=== PATIENT | male | born 1955 | race Caucasian/White ===

== ENCOUNTER 2021-09-05 01:36 | Day surgery (SDC) | payer BC, SELFPAY ==
[2021-09-05 08:19] VITALS: BMI 31.4
[2021-09-05 09:26] VITALS: BP 122/75; PULSE 73; RESP 18; TEMP 35.8; O2SAT 100
--- NOTE | 2021-09-05 09:26 | WPDGICN ---
Assessment and Plan Assessment and plan (1) Encounter for screening colonoscopy: Code(s): Z12.11 - Encounter for screening for malignant neoplasm of colon Status: Acute Assessment and Plan: Patient presents for screening colonoscopy. Patient appears to be at average risk for colon polyps. Further recommendations will be given after endoscopy. GI Consult Note Consult date/time: 09/05/21 09:26 HPI: Alfie Weiss is a 66 year old male Presents for screening colonoscopy. Patient's current weight appetite and bowel movements are normal. Patient denies abdominal pain. He has had no bleeding. Family history is noncontributory. Patient reports colonoscopy more than 10 years ago that was unremarkable . he presents today for neoplasia screening. Review of Systems Review of Systems: All systems reviewed & are unremarkable except as noted in HPI and below PMFSH Social History Social History Smoking packs per day: 1 Smoking cigarettes per day: 20.0 Years smoked: 10 Smoking pack-years: 10.00 Smoking status: Former smoker Alcohol intake: current Substance use: never Substance use type: does not use Living arrangements: with family Spiritual care concerns: No Meds Home Medications and Allergies Home Medications Medication Instructions Recorded Confirmed Type lorazepam 1 mg PO BID PRN 09/05/21 09/05/21 History paroxetine HCl 40 mg PO DAILY 09/05/21 09/05/21 History simvastatin 40 mg PO DAILY 09/05/21 09/05/21 History Allergies Allergy/AdvReac Type Severity Reaction Status Date / Time No Known Allergies Allergy Unknown Unverified 09/05/21 09:24 Exam Narrative: Physical exam reveals patient to be alert. Vital signs stable. HEENT exam is unremarkable. Patient is anicteric. Lungs are clear to auscultation and percussion. Heart is without murmur or extra sounds. Abdominal exam bowel sounds are present soft nontender with no hepatosplenomegaly. Digital external rectal exam is normal.
[2021-09-05] MEDS: LACTATED RINGERS 1,000 ML 150 ML IV CONT (09:30)
--- NOTE | 2021-09-05 09:48 | WPDANESEPPF ---
Anes - Initial Pre Proc Eval Procedure: Operation Date: 09/05/21 10:45 Proposed Procedures p Screening Colonoscopy - Jeol Wilkinson MD Date/Time: 09/05/21 09:48 Surgeon: Joel Wilkinson MD Pre Op Diagnosis: neoplasm screening Patient Data Age: 66 Gender: M Height: 1.8 m Weight: 100 kg Last Vital Signs Temp 35.8 C L 09/05/21 09:26 Pulse 73 09/05/21 09:26 Resp 18 09/05/21 09:26 BP 122/75 09/05/21 09:26 Pulse Ox 100 09/05/21 09:26 Allergies Allergy/AdvReac Type Severity Reaction Status Date / Time No Known Allergies Allergy Unknown Unverified 09/05/21 09:24 Home Medications Medication Instructions Recorded Confirmed Type lorazepam 1 mg PO BID PRN 09/05/21 09/05/21 History paroxetine HCl 40 mg PO DAILY 09/05/21 09/05/21 History simvastatin 40 mg PO DAILY 09/05/21 09/05/21 History Patient hx anesthesia problems: none Family hx anesthesia problems: none Results Review: All pre-operative results and documents have been reviewed as part of the pre-operative evaluation. PMFSH Past Medical History Medical History (Updated 09/05/21 @ 09:48 by Alfie Flores MD) Hyperlipidemia Surgical History Surgical History (Updated 09/05/21 @ 09:48 by Alfie Flores MD) H/O colonoscopy Social History Social History Smoking packs per day: 1 Smoking cigarettes per day: 20.0 Years smoked: 10 Smoking pack-years: 10.00 Smoking status: Former smoker Alcohol intake: current Substance use: never Substance use type: does not use Living arrangements: with family Spiritual care concerns: No Anes - Eval Final PreProcedure Day of Procedure 09/05/21 09:48 Patient weight: obese Heart: regular rate and rhythm Lungs: clear to auscultation Airway: Mallampati scale class II Neurological: alert and oriented Last oral intake: >/= 8 hours ASA classification: II Emergent: no Anesthetic plan: proceed Anesthesia type and monitoring: general GIVS and standard monitoring Results Review: All pre-operative results and documents have been reviewed as part of the pre-operative evaluation. Informed Consent: The patient's anesthetic plan and its attendant risks and benefits were discussed with the patient/family/POA. Questions were solicited and answers provided to the satisfaction of the patient/family/POA.
[2021-09-05 10:16] VITALS: BP 99/59; PULSE 88; RESP 14; O2SAT 100
[2021-09-05 10:26] VITALS: BP 107/64; PULSE 68; RESP 13; O2SAT 100
[2021-09-05 10:36] VITALS: BP 125/56; PULSE 74; RESP 20; O2SAT 100
== END 2021-09-05 10:48 | disposition home or self-care (01) ==
PROVIDERS: PCP Family Medicine; Visit Provider Internal Medicine Gastroenterology
PROC: 0DJD8ZZ Inspection of Lower Intestinal Tract, Via Natural or Artificial Opening Endoscopic (ICD-10-PCS; CPT 45378; principal; 2021-09-05 10:45)
DX: Z12.11 Encounter for screening for malignant neoplasm of colon (principal); K64.8 Other hemorrhoids; E78.5 Hyperlipidemia, unspecified; Z87.891 Personal history of nicotine dependence; E66.9 Obesity, unspecified; Z68.30 Body mass index [BMI] 30.0-30.9, adult
CPT/HCPCS: 45378; J2704; J7120

== ENCOUNTER 2022-12-02 12:26 | Inpatient (IN) | payer MEDICARE, SELFPAY ==
[2022-12-02] VITALS (15 sets, daily range): BP systolic 111–158; BP diastolic 49–70; PULSE 66–92; RESP 12–18; TEMP 36.5–37.3; O2SAT 97–100; BMI 30.9
--- NOTE | ~2022-12-02 | XR_ITS ---
XR chest 1V portable DATE: 12/02/2022 13:09 INDICATION: Shortness of breath TECHNIQUE: Portable upright AP chest on 11/28/2022 at 1307 hours COMPARISON: None FINDINGS: No pulmonary infiltrate or consolidation, pleural effusion or pulmonary vascular congestion or pneumothorax is detected. No hilar or mediastinal enlargement. Heart size is borderline, not optimally evaluated on AP projection because of magnification. Degenerative spurring of the thoracic spine. IMPRESSION: No active pulmonary disease Reviewed, dictated and finalized at location A. IMPRESSION: No active pulmonary disease
--- NOTE | 2022-12-02 12:51 | ECG_ITS ---
Measurements Intervals [place] Rate: 80 P: -35 IN: 122 QRS: -18 QRSD: 132 T: 2 QT: 425 QTc: 492 Interpretive Statements SINUS RHYTHM INTRAVENTRICULAR CONDUCTION DELAY [130+ ms QRS DURATION] VOLTAGE CRITERIA FOR LVH [MEETS CRITERIA IN ONE OF: R(aVL), S(V1), R(V5), R(V5/V6)+S(V1)] ABNORMAL ECG NO PREVIOUS ECG AVAILABLE FOR COMPARISON Electronically Signed On 12-03-2022 8:23:41 CDT by Andres Brady M.D.
--- NOTE | 2022-12-02 13:07 | ED.GENADULT ---
HPI - General Adult General Chief complaint: Recheck/Abnormal Lab/Rx Stated complaint: blood transfusion Time Seen by Provider: 12/02/22 12:36 History of Present Illness HPI narrative: this is a 67-year-old male who is sent in by his primary care physician for a low hemoglobin of 4.8. Patient states that he has been short of breath for about 5 years. He says that he went saw his primary care physician about it they ordered some lab work. While he was in [place] called him back instructed him to come back to states he would need a blood transfusion. At this time patient feels globally weak and says he looks pale but has no fever chills chest pain difficulty breathing abdominal pain. He has not noticed any hematochezia or melena. He had a colonoscopy 1 year ago which he states was normal. Related Data Home Medications Medication Instructions Recorded Confirmed lorazepam 1 mg tablet 1 mg PO BID PRN Anxiety 09/05/21 09/05/21 simvastatin 40 mg tablet 40 mg PO DAILY 09/05/21 09/05/21 Allergies Allergy/AdvReac Type Severity Reaction Status Date / Time No Known Allergies Allergy Unknown Unverified 12/02/22 12:36 [facility] Past Medical History Medical History Essential (primary) hypertension Hyperlipidemia Major depressive disorder, recurrent, in partial remission Obesity Other abnormal glucose Surgical History Surgical History (Updated 09/19/22 @ 13:07 by TOMER Bates) H/O colonoscopy History of carpal tunnel release 2003 History of vasectomy 1994 Social History Social History Smoking packs per day: 1 Smoking cigarettes per day: 20.0 Years smoked: 10 Smoking pack-years: 10.00 Smoking status: Former smoker Alcohol intake: current Substance use: never Substance use type: does not use Lack of Transportation: No Lack of Food: Never True Current Housing: I Have Housing Concerned About Future Housing: No Difficulty Paying Gas/Electric Bills: No Difficulty Paying for Meds: No Currently Unemployed: YES Education: Master's Degree or Higher Difficulty w/ Childcare or Family Care: No Living arrangements: with family Occupation/Education: retired Gender identity (if verbalized by the patient): Male Spiritual care concerns: No Exam Narrative: APPEARANCE: No apparent distress. Head: atraumatic. EYES: EOMI, NOSE: Atraumatic NECK: Trachea midline RESPIRATORY: No increased rate of breathing , clear to auscultation CARDIOVASCULAR: RRR, ABDOMINAL: Non-distended, soft nontender no guarding or rebound MUSCULOSKELETAl: No obvious deformities NEURO: Alert. Moving 4/4 extremities SKIN:: Warm, dry. Normal color PSYCHIATRIC: Normal affect rectal exam was Hemoccult negative Course Vital Signs Vital signs: Vital Signs Temperature 97.7 F 12/02/22 12:31 Pulse Rate 92 12/02/22 12:31 Respiratory Rate 18 12/02/22 12:31 Blood Pressure 137/66 12/02/22 12:31 Pulse Oximetry 99 12/02/22 12:31 Oxygen Delivery Room Air 12/02/22 12:31 Temperature 97.7 F 12/02/22 12:31 Pulse Rate 84 12/02/22 14:03 Respiratory Rate 16 12/02/22 14:03 Blood Pressure 120/68 12/02/22 14:03 Pulse Oximetry 100 12/02/22 14:03 Oxygen Delivery Room Air 12/02/22 12:31 Medical Decision Making [facility] Narrative Medical decision making narrative: -Presentation: 67-year-old male presenting to ED for abnormal labs. Hemoglobin 4.8. Patient has symptomatic anemia but no focal findings. Anemia lab work was ordered. 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 Nancy Nixon on October 20. -Hx from [facility] So
[2022-12-02 13:13] LABS: Reticulocyte Hemoglobin Conten 13.9 pg (28.2-35.7); Reticulocyte Percent 2.98 % (0.7-4.3); Reticulocytes Absolute 0.09 M/mm3 (0.02-0.1)
[2022-12-02 13:18] LABS: Lactate Dehydrogenase 130 U/L (120-246)
[2022-12-02 13:20] LABS: Alanine Aminotransferase 18 U/L (6-50); Albumin Level 4.5 g/dL (3.5-5.1); Alkaline Phosphatase 67 U/L (38-126); Anion Gap 9 mmol/L (8-16); Aspartate Amino Transferase 24 U/L (17-59); Bilirubin,Total 0.4 mg/dL (0.2-1.3); Blood Urea Nitrogen 10 mg/dL (9-20); Calcium 8.6 mg/dL (8.4-10.2); Carbon Dioxide 25 mmol/L (22-30); Chloride 104 mmol/L (98-107); Estimated CRCL calculation 113 ml/min; Estimated Glomerular Filt Rate > 60; Glucose 89 mg/dL (65-110); Lipase 40 U/L (23-300); Phosphorus 4.1 mg/dL (2.5-4.5); Potassium 3.8 mmol/L (3.4-5.0); Sodium 138 mmol/L (137-145)
[2022-12-02 13:22] LABS: Bilirubin,Total 0.5 mg/dL (0.2-1.3)
[2022-12-02 13:26] LABS: Transferrin 370 mg/dL (206-381)
[2022-12-02 13:27] LABS: Partial Thromboplastin Time 29.6 SECONDS (22.3-36.8); Prothrombin Time 14.1 Seconds (11.1-14.7)
[2022-12-02 13:31] LABS: Troponin I < 0.012 ng/mL (0.000-0.034)
[2022-12-02 13:38] LABS: Appearance Urine Clear (Clear); Bilirubin Urine Negative (Negative); Blood Urine Negative (Negative); Color Urine Yellow (Yellow); Glucose Urine UA Negative (Negative); Ketones Urine Negative (Negative); Leukocyte Esterase Ur Negative LEU/UL (Negative); Nitrate Urine Negative (Negative); Protein Urine Negative (Negative); Specific Grav Ur 1.007 (1.001-1.035); Urobilinogen Urine 0.2 mg/dL (<2.0); pH Urine 5.5 (5.0-9.0)
[2022-12-02 13:41] LABS: Add Urine Microscopic? NO
[2022-12-02 13:45] LABS: Iron 23 ug/dL (49-181)
[2022-12-02 13:54] LABS: Percent Iron Saturation 4 % (20-50)
[2022-12-02 14:17] LABS: Thyroid Stimulating Hormone Reflex 0.568 uIU/mL (0.465-4.68)
[2022-12-02 14:21] LABS: Ferritin 2.68 ng/mL (11.1-264)
[2022-12-02 14:26] LABS: Folic Acid 19.3 ng/mL (2.76->20)
[2022-12-02 14:34] LABS: Lactic Acid Reflex 0.9 mmol/L (0.7-2.0)
[2022-12-02 16:00] LABS: Basophils Percent Auto 0.7 % (0.2-1.2); Eosinophils Absolute Auto 0.2 K/mm3 (0-0.3); Eosinophils Percent Auto 3.5 % (0-4.4); Immature Granulocyte Absolute 0.03 K/mm3 (0.00-0.031); Immature Granulocyte Percent A 0.6 % (0-0.5); Immature Platelet Fraction Pct 14.1 % (0.9-11.2); Lymphocytes Absolute Auto 0.83 K/mm3 (0.9-3.2); Lymphocytes Percent Auto 15.2 % (18.3-44.2); Mean Corpuscular Hemoglobin 15.2 pg (26-34); Mean Corpuscular Volume 63.2 fl (80-100); Monocytes Absolute Auto 0.3 K/mm3 (0.1-0.6); Monocytes Percent Auto 5.7 % (2.6-8.5); Neutrophils Absolute Auto 4.1 K/mm3 (1.3-6.7); Neutrophils Percent Auto 74.3 % (45.5-73.1); Nucleated Red Blood Cells Perc 0.6 % (0.0-0.2); Platelet Count Result 235 k/mm3 (150-375); Red Cell Distribution Width 22.6 % (11.5-14.5); White Blood Count 5.5 K/mm3 (4.5-10.0)
[2022-12-02 16:15] LABS: Hematocrit 19.6 % (42.0-52.0); Hemoglobin 4.7 g/dL (14.0-18.0)
[2022-12-02 16:16] LABS: Anisocytosis 1+ (NORMAL); Hypochromasia 1+ (NORMAL); Microcytosis 2+ (NORMAL); Ovalocytes 1+ (NORMAL); Platelet Estimate Adequate (Adequate); Schistocytes None Seen (NORMAL)
[2022-12-02 16:26] LABS: Troponin I < 0.012 ng/mL (0.000-0.034)
--- NOTE | 2022-12-02 17:12 | ADMGEN ---
This patient, Alfie Weiss, was admitted to [facility] Surg Room 312-01 at 1710. Patient/family oriented to hospital policies and general routines including ID bracelet, bed and alarms, visiting hours, pain management, procedures, bathroom and other care routines, personal items, smoking policy, room service/diet, and visiting hours. Information on how to activate the Rapid Response Team has been discussed. Patient/Family are encouraged to report perceived risks to care and to ask questions if they do not understand what they are told or what they should do.
[2022-12-02] MEDS: TUBING, BLOOD PLUM PUMP TUBING 1 EACH XX (17:47)
[2022-12-02] MEDS: SODIUM CHLORIDE 0.9% IV 250 ML 30 ML IV CONT (17:47)
--- NOTE | 2022-12-02 20:12 | PM.IMHP ---
H&P: HPI History of Present Illness Date/Time: 12/02/22 20:12 Chief Complaint: Abnormal lab Narrative: This is a 67-year-old male patient who has a history of depression anxiety and hyperlipidemia. The patient had been in [place] when he got a phone call from his primary care doctor that his blood count was low and that he needed a blood transfusion. The patient stated that he has been feeling short of breath and weak for at least the last 5 years. The patient stated that he has been short of breath with activity but it has been worse over the last several days. He has had no fever chills. The patient also feels dizzy a time. The patient did have a colonoscopy approximately 1 year ago and it was reported as normal and the patient was to return in 10 years. The patient has no complaints of any blood in his stool. The patient did return to [place] from his trip to [place]. On 11/21 his hemoglobin was 4.8 and he was notified during his trip that his blood count was low. Today his H&H was 4.7 and 19.6. Red blood cells 3.10 MCV is 63.2. He has microcytic anemia. His iron is low at 23 TIBC is 563 iron saturation is 4. Ferritin 2.68. The patient stated that he has never had a iron infusion before. His TSH is within normal limits. The patient had anemia panel drawn prior to his blood transfusion and many of those are still pending. Patient was type and crossmatch for 3 units of packed red blood cells ordered. The patient stated that he is feeling better with the blood transfusion he said he has not felt this well in a long time. He did have a chest x-ray that shows no active pulmonary disease. The patient has been admitted to observation status on the date of service of 12/02/2022. Review of Systems Review of Systems: All systems reviewed & are unremarkable except as noted in HPI and below Constitutional: Constitutional: Reports as per HPI and Reports no additional constitutional complaints Eyes: Eyes: Reports as per HPI and Reports no additional eye complaints ENT: Reports system reviewed and no additional complaints, except as documented and Reports Normal hearing present Cardiovascular: Cardiovascular: Reports no additional cardiovascular complaints Respiratory: Respiratory: Reports no additional respiratory complaints and Reports no additional respiratory complaints Gastrointestinal: Gastrointestinal: Reports as per HPI and Reports no additional gastrointestinal complaints Musculoskeletal: Musculoskeletal: Reports no additional musculoskeletal complaints Integumentary/Breasts: Skin/Breast: Reports system reviewed and no additional complaints, except as docu and Reports as per HPI Neurologic: Reports system reviewed and no additional complaints, except as documented, Reports as per HPI and Reports Normal hearing present Psychiatric: Psychiatric: Reports no additional psychiatric complaints and Reports as per HPI Endocrine: Endocrine: Reports no additional endocrine complaints Hematologic/Lymphatic: Hematologic/Lymphatic: Reports no additional hematologic/lymphatic complaints Allergic/Immunologic: Allergic/Immunologic: Reports no additional allergic/immunologic complaints PMFSH Past Medical History Medical History (Updated 12/02/22 @ 23:08 by Rachael Baptiste NP) Anxiety with depression Essential (primary) hypertension Hyperlipidemia Major depressive disorder, recurrent, in partial remission Obesity Other abnormal glucose Surgical History Surgical History H/O colonoscopy History of carpal tunnel release 2004 History of vasectomy 1994 Family History Family History (Updated 12/02/22 @ 23:08 by Rachael Baptiste NP) Other Hypertension Social History Social History (Updated 12/02/22 @ 23:10 by Rachael Baptiste NP) Social History: 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 He has no children. He is . His is the
[2022-12-02] MEDS: LORazepam (*CRX) 1 MG TABLET PO (23:33)
[2022-12-03] VITALS (7 sets, daily range): BP systolic 119–137; BP diastolic 56–69; PULSE 67–85; RESP 12–20; TEMP 36.6–37.3; O2SAT 96–99
[2022-12-03 03:32] LABS: Basophils Percent Auto 0.7 % (0.2-1.2); Eosinophils Absolute Auto 0.2 K/mm3 (0-0.3); Eosinophils Percent Auto 3.3 % (0-4.4); Hematocrit 27.7 % (42.0-52.0); Hemoglobin 7.2 g/dL (14.0-18.0); Immature Granulocyte Absolute 0.05 K/mm3 (0.00-0.031); Immature Granulocyte Percent A 0.9 % (0-0.5); Immature Platelet Fraction Pct 15.7 % (0.9-11.2); Lymphocytes Absolute Auto 0.85 K/mm3 (0.9-3.2); Lymphocytes Percent Auto 14.6 % (18.3-44.2); Mean Corpuscular Hemoglobin 18.8 pg (26-34); Mean Corpuscular Volume 72.5 fl (80-100); Monocytes Absolute Auto 0.3 K/mm3 (0.1-0.6); Monocytes Percent Auto 5.3 % (2.6-8.5); Neutrophils Absolute Auto 4.4 K/mm3 (1.3-6.7); Neutrophils Percent Auto 75.2 % (45.5-73.1); Nucleated Red Blood Cells Perc 0.3 % (0.0-0.2); Platelet Count Result 149 k/mm3 (150-375); Red Blood Count 3.82 M/mm3 (4.6-6.20); Red Cell Distribution Width 27.9 % (11.5-14.5); White Blood Count 5.8 K/mm3 (4.5-10.0)
[2022-12-03 03:40] LABS: Alanine Aminotransferase 15 U/L (6-50); Albumin Level 4.1 g/dL (3.5-5.1); Alkaline Phosphatase 61 U/L (38-126); Anion Gap 10 mmol/L (8-16); Aspartate Amino Transferase 21 U/L (17-59); Bilirubin,Total 1.1 mg/dL (0.2-1.3); Blood Urea Nitrogen 10 mg/dL (9-20); Calcium 8.7 mg/dL (8.4-10.2); Carbon Dioxide 24 mmol/L (22-30); Chloride 106 mmol/L (98-107); Estimated CRCL calculation 130 ml/min; Estimated Glomerular Filt Rate > 60; Glucose 81 mg/dL (65-110); Potassium 3.7 mmol/L (3.4-5.0); Sodium 140 mmol/L (137-145)
[2022-12-03 04:06] LABS: Anisocytosis 2+ (NORMAL); Hypochromasia 2+ (NORMAL); Platelet Estimate Adequate (Adequate); Poikilocytosis 2+ (NORMAL); Schistocytes None Seen (NORMAL)
[2022-12-03] MEDS: POLYSACCHARIDE IRON COMPLEX 150 MG CAPSULE PO (08:44)
[2022-12-03] MEDS: SIMVASTATIN 20 MG TABLET 40 MG PO (08:44)
[2022-12-03 09:15] LABS: Hematocrit 27.4 % (42.0-52.0); Hemoglobin 7.5 g/dL (14.0-18.0)
--- NOTE | 2022-12-03 10:46 | PM.IMPN ---
Progress Note: A&P Assessment and Plan (1) Symptomatic anemia: Code(s): D64.9 - Anemia, unspecified Status: Acute Assessment and Plan: Hemoglobin down to 4.7 on presentation. Has had chronic persistent dyspnea Received 3 units packed RBCs, Hgb improved to 7.5 Continue to trend H&H q.6 Iron panel reviewed, consistent with iron deficiency anemia. Iron 23, TIBC 563,% saturation 4, ferritin 2.68 May benefit from IV iron infusion, however will hold off at this time while awaiting Hematology recommendations given recent transfusion Hemoccult reportedly negative in the ED. Stool occult blood test pending Haptoglobin pending No evidence of blood loss Patient reports having a colonoscopy 1-2 years ago, reportedly normal Reports recent echocardiogram 2 months ago, patient's will bring report to review Appreciate hematology consultation and recommendations Patient will be referred for outpatient GI follow-up, will likely benefit from repeat colonoscopy and EGD. Proceed with inpatient evaluation if patient develops bleeding or based on results of occult blood test (2) Thrombocytopenia: Code(s): D69.6 - Thrombocytopenia, unspecified Status: Acute Assessment and Plan: Very minimal decline in platelet count from 235-149 Monitor CBC (3) Anxiety with depression: Code(s): F41.8 - Other specified anxiety disorders Status: Acute Assessment and Plan: Mood is stable at this time. Continue home medications Subjective Date/time seen: 12/03/22 10:46 Interval history: Date of service: 12/03/2022 Alfie Weiss is 67-year-old male with a history of hypertension, hyperlipidemia, anxiety, depression who is seen in follow-up for symptomatic anemia. Patient states that for a couple of years he has noticed increased shortness of breath. Reports that he has been evaluated by a marketing communication manager for this and has had negative cardiac workup. He reports issues with activity, stating that he can no longer mow his lawn and has not been able to for a year. He was recently on vacation in [place] and reported trouble with carrying his luggage or any time he had to walk up an incline. Currently, he feels improved after blood transfusion. He denies dizziness, lightheadedness, palpitations, chest pain. He has been able to ambulate to and from the bathroom without any significant dyspnea. Denies any episodes of bleeding including hematochezia, melena, hematuria, hemoptysis, epistaxis. Denies bruising. Review of Systems Review of Systems: All systems reviewed & are unremarkable except as noted in HPI and below Exam Narrative: General: Well-nourished, well-appearing 67-year-old male, sitting up in bed, comfortable, NARD Neuro: awake, alert and oriented x4, speech clear, no focal neuro deficits noted HEENMT: normocephalic, atraumatic, EOMI, sclerae anicteric, moist oral mucosa Respiratory: clear to auscultation bilaterally, nonlabored breathing Cardio: regular rate, regular rhythm with S1-S2 Abdomen: nondistended, normoactive bowel sounds, soft, nontender to palpation Skin: no rashes or lesions, warm and dry Psych: appropriate mood and affect, judgment and insight intact Objective Data Vital Signs Vital Signs: Vital Signs - 24 hr 12/02/22 12:31 12/02/22 12:51 12/02/22 14:03 Temperature 97.7 F Pulse Rate 92 85 84 Respiratory Rate 18 16 16 Blood Pressure 137/66 111/49 L 120/68 Pulse Oximetry 99 100 100 Oxygen Delivery Room Air 12/02/22 17:03 12/02/22 17:20 12/02/22 17:42 Temperature 98.4 F Pulse Rate 76 84 Respiratory Rate 18 16 Blood Pressure 129/66 158/63 H Pulse Oximetry 100 97 Oxygen Delivery Room Air 12/02/22 17:58 12/02/22 18:54 12/02/22 19:52 Temperature 97.8 F 98.8 F 98.4 F Pulse Rate 73 75 69 Respiratory Rate 16 16 12 Blood Pressure 128/60 129/62 133/65 Pulse Oximetry 100 100 100 Oxygen Delivery 12/02/22 20:11 12/02/22 20:00
[2022-12-03 14:54] LABS: Hemoglobin 7.1 g/dL (14.0-18.0)
[2022-12-03 22:46] LABS: Hemoglobin 6.7 g/dL (14.0-18.0)
[2022-12-04] VITALS (7 sets, daily range): BP systolic 120–146; BP diastolic 65–82; PULSE 68–74; RESP 16–18; TEMP 36.1–37; O2SAT 97–100
[2022-12-04] MEDS: SODIUM CHLORIDE 0.9% IV 250 ML 30 ML IV CONT (01:16)
[2022-12-04] MEDS: LORazepam (*CRX) 1 MG TABLET PO (01:30)
[2022-12-04 06:39] LABS: Anion Gap 6 mmol/L (8-16); Blood Urea Nitrogen 10 mg/dL (9-20); Calcium 8.9 mg/dL (8.4-10.2); Carbon Dioxide 28 mmol/L (22-30); Chloride 107 mmol/L (98-107); Estimated CRCL calculation 113 ml/min; Estimated Glomerular Filt Rate > 60; Glucose 90 mg/dL (65-110); Potassium 3.6 mmol/L (3.4-5.0); Sodium 141 mmol/L (137-145)
[2022-12-04 06:42] LABS: Basophils Percent Auto 0.7 % (0.2-1.2); Eosinophils Absolute Auto 0.3 K/mm3 (0-0.3); Eosinophils Percent Auto 4.5 % (0-4.4); Hematocrit 28.7 % (42.0-52.0); Immature Granulocyte Absolute 0.03 K/mm3 (0.00-0.031); Immature Granulocyte Percent A 0.5 % (0-0.5); Immature Platelet Fraction Pct 12.9 % (0.9-11.2); Lymphocytes Absolute Auto 0.85 K/mm3 (0.9-3.2); Lymphocytes Percent Auto 15.3 % (18.3-44.2); Mean Corpuscular HGB Conc 27.9 g/dl (32-36); Mean Corpuscular Hemoglobin 19.8 pg (26-34); Mean Corpuscular Volume 70.9 fl (80-100); Monocytes Absolute Auto 0.3 K/mm3 (0.1-0.6); Monocytes Percent Auto 6.1 % (2.6-8.5); Neutrophils Absolute Auto 4.1 K/mm3 (1.3-6.7); Neutrophils Percent Auto 72.9 % (45.5-73.1); Platelet Count Result 212 k/mm3 (150-375); Red Blood Count 4.05 M/mm3 (4.6-6.20); Red Cell Distribution Width 28.3 % (11.5-14.5); White Blood Count 5.6 K/mm3 (4.5-10.0)
[2022-12-04 07:29] LABS: Anisocytosis 3+ (NORMAL); Hypochromasia 2+ (NORMAL); Microcytosis 2+ (NORMAL); Ovalocytes 1+ (NORMAL); Platelet Estimate Adequate (Adequate); Schistocytes None Seen (NORMAL)
[2022-12-04] MEDS: SIMVASTATIN 20 MG TABLET 40 MG PO (08:14)
[2022-12-04] MEDS: POLYSACCHARIDE IRON COMPLEX 150 MG CAPSULE PO (08:14)
[2022-12-04 12:04] LABS: Hemoglobin 8.3 g/dL (14.0-18.0)
--- NOTE | 2022-12-04 12:53 | WPDGICN ---
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 He has noticed increased shortness of breath for several months, even had cardiological evaluation and was negative. He had blood work as outpatient and found to have significant anemia, actually he was on vacation in [place] and reported trouble with carrying his luggage and was having dyspnea on exertion. He had screening colonoscopy last year by Dr Wilkinson and unremarkable (reviewed, only hemorrhoids), Hgb 6.7, plat 149, mcv 70. Denies weight loss, melena, nausea, he is not using ppi and never had egd. Review of Systems Constitutional: Constitutional: Reports fatigue Eyes: Eyes: Denies blurry vision ENT: Reports Normal hearing present Cardiovascular: Cardiovascular: Reports palpitations Respiratory: Respiratory: Reports dyspnea on exertion Gastrointestinal: Gastrointestinal: Denies abdominal pain and Denies nausea Genitourinary: Genitourinary: Denies hematuria Musculoskeletal: Musculoskeletal: Denies back pain Integumentary/Breasts: Skin/Breast: Denies rash Neurologic: Denies Abnormal speech present Psychiatric: Psychiatric: Denies confusion PMFSH Past Medical History Medical History (Updated 12/04/22 @ 12:57 by Rodger Fraser MD) Anxiety with depression Aspirin long-term use Essential (primary) hypertension Headache Hyperlipidemia Major depressive disorder, recurrent, in partial remission Obesity Other abnormal glucose Surgical History Surgical History H/O colonoscopy History of carpal tunnel release 2003 History of vasectomy 1994 Family History Family History (Updated 12/02/22 @ 23:08 by Rachael Baptiste NP) Other Hypertension Social History Social History (Updated 12/02/22 @ 23:10 by Rachael Baptiste NP) Social History: 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 He has no children. He is . His is the durable power trade mark attorney for healthcare. He is a former smoker. Code status full Smoking packs per day: 1 Smoking cigarettes per day: 20.0 Years smoked: 10 Smoking pack-years: 10.00 Smoking status: Former smoker Alcohol intake: current Substance use: never Substance use type: does not use Lack of Transportation: No Lack of Food: Never True Current Housing: I Have Housing Concerned About Future Housing: No Difficulty Paying Gas/Electric Bills: No Difficulty Paying for Meds: No Currently Unemployed: YES Education: Master's Degree or Higher Difficulty w/ Childcare or Family Care: No Living arrangements: with family Occupation/Education: retired Gender identity (if verbalized by the patient): Male Spiritual care concerns: No Meds Home Medications and Allergies Home Medications Medication Instructions Recorded C
--- NOTE | 2022-12-04 13:21 | PM.IMPN ---
Progress Note: A&P Assessment and Plan (1) Symptomatic anemia: Code(s): D64.9 - Anemia, unspecified Status: Acute Assessment and Plan: Hemoglobin down to 4.7 on presentation. Has had chronic persistent dyspnea Received 3 units packed RBCs, Hgb improved to 7.5 12/03/2022 decline in hemoglobin again last night 6.7. Received 1 additional unit packed RBCs Continue to trend H&H q.6 Iron panel reviewed, consistent with iron deficiency anemia. Iron 23, TIBC 563,% saturation 4, ferritin 2.68 Given ongoing decline, concern for occult blood loss. Consult to GI. Recommendations appreciated Patient endorses regular aspirin use, concerning for upper GI etiology for bleeding Plan for EGD tomorrow. Hemoccult reportedly negative in the ED. Stool occult blood test pending. No active bleeding evident Colonoscopy completed 1 year ago which was reportedly unremarkable Appreciate hematology consultation (2) Thrombocytopenia: Code(s): D69.6 - Thrombocytopenia, unspecified Status: Acute Assessment and Plan: Resolved. Platelet count normalized, 212 Monitor CBC (3) Anxiety with depression: Code(s): F41.8 - Other specified anxiety disorders Status: Acute Assessment and Plan: Mood is stable at this time. Continue home medications Subjective Date/time seen: 12/04/22 13:21 Interval history: Date of service: 12/03/2022 Alfie Weiss is 67-year-old male with a history of hypertension, hyperlipidemia, anxiety, depression who is seen in follow-up for symptomatic anemia. He is feeling better today. States that shortness of breath is much improved. He denies any episodes of bleeding. He denies palpitations. No chest pain. No nausea or vomiting. Denies fever or chills. Review of Systems Review of Systems: All systems reviewed & are unremarkable except as noted in HPI and below Exam Narrative: General: Well-nourished, well-appearing 67-year-old male, sitting up in bed, comfortable, NARD Neuro: awake, alert and oriented x4, speech clear, no focal neuro deficits noted HEENMT: normocephalic, atraumatic, EOMI, sclerae anicteric Respiratory: clear to auscultation bilaterally, nonlabored breathing Cardio: regular rate, regular rhythm with S1-S2 Abdomen: nondistended, normoactive bowel sounds, soft, nontender to palpation Skin: no rashes or lesions, warm and dry Psych: appropriate mood and affect, judgment and insight intact Objective Data Vital Signs Vital Signs: Vital Signs - 24 hr 12/03/22 14:00 12/03/22 21:29 12/04/22 01:22 Temperature 98.8 F 97.9 F 97.9 F Pulse Rate 85 67 68 Respiratory Rate 20 16 18 Blood Pressure 119/61 126/56 L 137/74 Pulse Oximetry 98 98 98 Oxygen Delivery 12/04/22 01:40 12/04/22 02:40 12/04/22 03:40 Temperature 98.6 F 98.5 F 98.3 F Pulse Rate 72 71 68 Respiratory Rate 18 18 18 Blood Pressure 137/71 135/82 129/68 Pulse Oximetry 98 98 97 Oxygen Delivery 12/04/22 05:25 12/04/22 08:00 Temperature 97.6 F Pulse Rate 71 Respiratory Rate 16 Blood Pressure 146/73 H Pulse Oximetry 97 Oxygen Delivery Room Air Intake/Output Intake/Output: Intake & Output 12/01/22 12/02/22 12/03/22 12/04/22 23:59 23:59 23:59 23:59 Intake Total 628 2265 1070 Output Total 350 1080 0 Balance 278 1185 1070 Meds/Results Medications: Active Medications Generic Name Dose Route Start Last Admin Trade Name Freq PRN Reason Stop Dose Admin Lorazepam 1 mg 12/02/22 20:12 12/04/22 01:30 Lorazepam (*Crx) 1 Mg Tablet PO 1 mg BID PRN Administration Anxiety Miscellaneous Information 1 each 12/02/22 00:01 Paroxetine Cr Is Non Formulary. Can Patient Use From Home? XX 01/01/23 00:00 CLARIFY SUSY Non-Formulary Medication 37.5 mg 12/03/22 09:00 Paroxetine Hcl PO 01/02/23 08:59 QAM [facility] Pantoprazole Sodium 40 mg 12/04/22 12:55 Pantoprazole Sodium Iv 40 Mg [place] [facility] [place]
[2022-12-04] MEDS: PANTOPRAZOLE SODIUM IV 40 MG VIAL IV PUSH (13:37)
--- NOTE | 2022-12-04 17:12 | PC.NURSE ---
Home medication Paroxetine sent down to pharmacy. Pharmacist confirmed medication was received in the tube system and to send back up when verified.
--- NOTE | 2022-12-04 17:34 | PHAR ---
DRUG NAME: PAROXETINE INGREDIENTS: PAROXETINE HYDROCHLORIDE -- 40 MG RELATED DOCUMENTS: DRUGDEX EVALUATIONS - PAROXETINE COLOR: WHITE TO OFF-WHITE SHAPE: CONFEDERATED SALISH IMPRINT: ZC18 IMPRINT CODE DESCRIPTION: THE TABLET IS DEBOSSED WITH THE LOGO ZC18.
--- NOTE | 2022-12-04 18:11 | PDONCCN ---
HPI - Date of Consult Date/Time: 12/04/22 18:11 Requesting Physician: Kathy Alfred PA-C Primary Care Provider: David Ramos MD - Consult Narrative Reason for consult: Iron deficiency anemia Narrative: Alfie Weiss is a 67 year old male with history of hypertension, hyperlipidemia and depression had labs done that showed significant anemia with hemoglobin of 4.7. He has been feeling tired and fatigued for last 1 year duration. He denies any bleeding including melena hematochezia. He denies being a vegetarian but rarely eats red meat. He had last colonoscopy done couple of years ago and came back reportedly normal. He denies any previous stomach surgery. His blood improved to 8.3 after receiving 4 units of packed red blood cells other labs showed iron level of 23 with iron saturation of 4% and ferritin of 2.68. He denies any previous history of anemia and any malignancy. He is not taking any iron supplement. Review of Systems - Review of Systems All systems reviewed & are unremarkable except as noted in HPI and bel - Neurologic Reports system reviewed and no additional complaints, except as documented, Reports hearing normal, Denies abnormal speech, Denies confusion [facility] Medical History: Medical History (Last Updated 12/04/22 @ 12:57 by Rodger Fraser MD) Anxiety with depression Aspirin long-term use Essential (primary) hypertension Headache Hyperlipidemia Major depressive disorder, recurrent, in partial remission Obesity Other abnormal glucose Surgical History: Surgical History (Last Reviewed 12/02/22 @ 23:08 by Rachael Baptiste NP) H/O colonoscopy History of carpal tunnel release 2003 History of vasectomy 1994 Family History: Family History (Last Updated 12/02/22 @ 23:08 by Rachael Baptiste NP) Other Hypertension - Social History Social History: Social History (Last Updated 12/02/22 @ 23:10 by Rachael Baptiste NP) Gender Identity: Gender identity (if verbalized by the patient): Male Alcohol Use: Alcohol intake: current Substance Use: Substance use: never Substance use type: does not use Others: Spiritual care concerns: No Living Arrangements: Living arrangements: with family Oppucation/Education: Occupation/Education: retired Smoking Status: Smoking status: Former smoker Smoking Pack-years: Smoking packs per day: 1 Smoking cigarettes per day: 20.0 Years smoked: 10 Smoking pack-years: 10.00 Social Determinants of Health: Has the Lack of Transportation Kept You From Medical Appointments or From Getting Medications?: No Within the Past 12 Months, Were You Worried Whether Your Food Would Run Out Before You Got Money to Buy More?: Never True What is Your Housing Situation Today?: I Have Housing Are You Worried That in the Next 2 Months, You May Not Have Your Own Housing to Live In?: No Do You Have Trouble Paying Your Heating Or Electricity Bill?: No Do You Have Trouble Paying For Medicines?: No Are You Currently Unemployed and Looking for Work?: Yes Highest Level of Education Completed: Master's Degree or Higher Do You Have Trouble With Childcare or the Care of a Family Member?: No Exam - Vital Signs Vital Signs - 24 hr 12/03/22 21:29 12/04/22 01:22 12/04/22 01:40 Temperature 36.6 C 36.6 C 37.0 C Pulse Rate 67 68 72 Respiratory Rate 16 18 18 Blood Pressure 126/56 L 137/74 137/71 Pulse Oximetry 98 98 98 Oxygen Delivery 12/04/22 02:40 12/04/22 03:40 12/04/22 05:25 Temperature 36.9 C 36.8 C 36.4 C Pulse Rate 71 68 71 Respiratory Rate 18 18 16 Blood Pressure 135/82 129/68 146/73 H Pulse Oximetry 98 97 97 Oxygen Delivery 12/04/22 08:00 12/04/22 14:00 Temperature 36.9 C Pulse Rate 74 Respiratory Rate 16 Blood Pressure 136/76 Pulse Oximetry 100 Oxygen Delivery Room Air - Exam HEENT: EOMI, PERRLA, mucous membr
[2022-12-04] MEDS: PARoxetine 20 MG TABLET 40 MG PO (18:58)
[2022-12-04] MEDS: IRON SUCROSE COMPLEX 500 MG in SODIUM CHLORIDE 0.9% IV 250 ML 78.57 MG IVPB (19:58)
[2022-12-05 06:00] VITALS: BP 134/67; PULSE 67; RESP 18; TEMP 36.1; O2SAT 94
[2022-12-05 06:13] LABS: Hemoglobin 8.2 g/dL (14.0-18.0); Immature Platelet Fraction Pct 13.2 % (0.9-11.2); Mean Corpuscular HGB Conc 27.3 g/dl (32-36); Mean Corpuscular Hemoglobin 19.4 pg (26-34); Mean Corpuscular Volume 71.1 fl (80-100); Platelet Count Result 216 k/mm3 (150-375); Red Blood Count 4.22 M/mm3 (4.6-6.20); Red Cell Distribution Width 29.2 % (11.5-14.5); White Blood Count 6.4 K/mm3 (4.5-10.0)
[2022-12-05 06:27] LABS: Anion Gap 7 mmol/L (8-16); Blood Urea Nitrogen 11 mg/dL (9-20); Calcium 9.1 mg/dL (8.4-10.2); Carbon Dioxide 30 mmol/L (22-30); Chloride 104 mmol/L (98-107); Estimated CRCL calculation 113 ml/min; Estimated Glomerular Filt Rate > 60; Glucose 94 mg/dL (65-110); Potassium 3.8 mmol/L (3.4-5.0); Sodium 141 mmol/L (137-145)
[2022-12-05] MEDS: IRON SUCROSE COMPLEX 500 MG in SODIUM CHLORIDE 0.9% IV 250 ML 78.57 MG IVPB (08:27)
[2022-12-05] MEDS: POLYSACCHARIDE IRON COMPLEX 150 MG CAPSULE PO (08:28)
[2022-12-05] MEDS: PARoxetine 20 MG TABLET 40 MG PO (08:28)
[2022-12-05] MEDS: PANTOPRAZOLE SODIUM IV 40 MG VIAL IV PUSH (08:28)
[2022-12-05] MEDS: SIMVASTATIN 20 MG TABLET 40 MG PO (08:28)
[2022-12-05 10:30] VITALS: BP 140/71; PULSE 70; RESP 18; TEMP 36.4; O2SAT 99
--- NOTE | 2022-12-05 10:38 | WPDANESEPPF ---
Anes - Initial Pre Proc Eval Procedure: Operation Date: 12/05/22 13:15 Proposed Procedures p Esophagogastroduodenoscopy - Rodger Fraser MD Date/Time: 12/05/22 10:38 Surgeon: Mark Pre Op Diagnosis: Symptomatic anemia Patient Data Age: 67 Gender: M Height: 1.83 m Weight: 103.6 kg Last Vital Signs Temp 36.1 C L 12/05/22 06:00 Pulse 67 12/05/22 06:00 Resp 18 12/05/22 06:00 BP 134/67 12/05/22 06:00 Pulse Ox 94 12/05/22 06:00 O2 Del Method Room Air 12/05/22 08:00 Allergies Allergy/AdvReac Type Severity Reaction Status Date / Time No Known Allergies Allergy Unknown Verified 12/05/22 10:37 Home Medications Medication Instructions Recorded Confirmed Type lorazepam 1 mg tablet 1 mg PO BID PRN Anxiety 09/05/21 12/02/22 History simvastatin 40 mg tablet 40 mg PO DAILY 09/05/21 12/02/22 History paroxetine HCl 37.5 mg 37.5 mg PO QAM #30 tabs 09/19/22 12/02/22 Rx tablet,extended release 24 hr Laboratory Tests 12/04/22 12/05/22 11:58 05:52 WBC 6.4 K/mm3 (4.5-10.0) RBC 4.22 L M/mm3 (4.6-6.20) Hgb 8.3 L g/dL 8.2 L g/dL (14.0-18.0) (14.0-18.0) Hct 30.0 L % 30.0 L % (42.0-52.0) (42.0-52.0) MCV 71.1 L fl (80-100) MCH 19.4 L pg (26-34) MCHC 27.3 L g/dl (32-36) RDW 29.2 H % (11.5-14.5) Plt Count 216 k/mm3 (150-375) MPV TNP % Immature Plt Fraction 13.2 H % (0.9-11.2) Sodium 141 mmol/L (137-145) Potassium 3.8 mmol/L (3.4-5.0) Chloride 104 mmol/L (98-107) Carbon Dioxide 30 mmol/L (22-30) Anion Gap 7 L mmol/L (8-16) BUN 11 mg/dL (9-20) Creatinine 0.70 mg/dL (0.7-1.3) Estim Creat Clear Calc 113 ml/min Estimated GFR > 60 (59 - ) Glucose 94 mg/dL (65-110) Calcium 9.1 mg/dL (8.4-10.2) Patient hx anesthesia problems: none Family hx anesthesia problems: none Results Review: All pre-operative results and documents have been reviewed as part of the pre-operative evaluation. [facility] Past Medical History Medical History (Updated 12/04/22 @ 18:15 by Chava Wright MD) Anxiety with depression Aspirin long-term use Essential (primary) hypertension Headache Hyperlipidemia Major depressive disorder, recurrent, in partial remission Obesity Other abnormal glucose Surgical History Surgical History (Updated 12/04/22 @ 18:15 by Chava Wright MD) H/O colonoscopy History of carpal tunnel release 2003 History of vasectomy 1994 Family History Family History (Updated 12/02/22 @ 23:08 by Rachael Baptiste NP) Other Hypertension Social History Social History (Updated 12/02/22 @ 23:10 by Rachael Baptiste NP) Social History: 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 He has no children. He is . His is the durable power compliance attorney for healthcare. He is a former smoker. Code status full Smoking packs per day: 1 Smoking cigarettes per day: 20.0 Years smoked: 10 Smoking pack-years: 10.00 Smoking status: Former smoker Alcohol intake: current Substance use: never Substance use type: does not use Lack of Transportation: No Lack of Food: Never True Current Housing: I Have Housing Concerned About Future Housing: No Difficulty Paying Gas/Electric Bills: No Difficulty Paying for Meds: No Currently Unemployed: YES Education: Master's Degree or Higher Difficulty w/ Childcare or Family Care: No Living arrangements: with family Occupation/Education: retired Gender identity (if verbalized by the patient): Male Spiritual care concerns: No Anes - Eval Final PreProcedure Day of Procedure 12/05/22 10:38 Patient weight: obese Heart: regular rate and rhythm Lungs: clear to auscultation Airway: Mallampati scale class II Neurological: alert and oriented Last oral intake: >/= 8 hours
[2022-12-05] MEDS: LACTATED RINGERS 1,000 ML 150 ML IV CONT (11:25)
[2022-12-05 11:41] VITALS: BP 94/50; PULSE 68; RESP 20; O2SAT 98
[2022-12-05 11:51] VITALS: BP 105/55; PULSE 70; RESP 20; O2SAT 98
[2022-12-05 12:01] VITALS: BP 103/59; PULSE 68; RESP 20; O2SAT 98
[2022-12-05 14:00] VITALS: BP 139/71; PULSE 70; RESP 16; TEMP 36.7; O2SAT 100
--- NOTE | 2022-12-05 14:20 | PM.DS ---
DS: Admitting Diagnosis Discharge Date 12/05/2022 Admitting Diagnosis Symptomatic anemia DS: Discharge Diagnosis Discharge Diagnosis (1) Symptomatic anemia: Code(s): D64.9 - Anemia, unspecified Status: Acute Assessment and Plan: Patient with persistent dyspnea ongoing for 1 year Hemoglobin down to 4.7 on presentation Received a total of 4 units packed RBCs during admission. H&H stabilized following transfusion Iron panel reviewed, consistent with iron deficiency anemia. Iron 23, TIBC 563,% saturation 4, ferritin 2.68 Seen in consultation by GI and Hematology Hemoccult was negative in the ED. stool occult blood test ordered, not able to collected during admission. No active bleeding. Noted to have gastritis which is the likely etiology for anemia. See plan below Received IV iron infusion during admission and was on oral iron supplementation which he will continue as an outpatient Follow-up with hematology in the office Repeat H&H in 3 days to ensure remaining stable (2) Gastritis: Code(s): K29.70 - Gastritis, unspecified, without bleeding Status: Acute Assessment and Plan: Patient endorse regular aspirin use, concerning for GI blood loss Patient seen in consultation by Gastroenterology underwent EGD on 12/05 EGD showed ulcerative gastritis with no active bleeding. [place] to be low source of her anemia Continue Protonix twice daily Avoid NSAIDs and aspirin Follow-up with GI in 3 months for repeat EGD to assess for healing (3) Thrombocytopenia: Code(s): D69.6 - Thrombocytopenia, unspecified Status: Acute Assessment and Plan: Resolved. (4) Anxiety with depression: Code(s): F41.8 - Other specified anxiety disorders Status: Acute Assessment and Plan: Mood remained stable during admission. Continue paroxetine DS: Summary Hospital Course Hospital Course: Alfie Weiss is 67-year-old male with a history of hypertension, hyperlipidemia, anxiety, depression who presented to the ED on 12/02/2022 under the direction of his PCP for low hemoglobin. On presentation to the ED, his vital signs were stable, he was afebrile, hemoglobin 4.7, hematocrit 19.6, additional laboratory workup unremarkable, troponin negative. He was admitted to the hospitalist service for further evaluation and management was seen in consultation by Hematology and Gastroenterology. Please see above for further details. Underwent EGD which revealed gastritis, felt to be the etiology for his symptoms. He will continue Protonix and follow with GI as an outpatient. He will also follow-up with Hematology begin oral iron supplementation. H&H remained stable following transfusion he will have repeat H&H in 3 days as an outpatient with results to PCP. Discussed with the patient worrisome signs and symptoms for which to return. He was discharged in hemodynamically stable condition on 12/05/2022. Time Spent with Patient Time attestation: Total time spent providing and/or coordinating discharge services: 45 minute Time spent: Greater than 30 minutes Exam Narrative: General: Well-nourished, well-appearing 67-year-old male, sitting up in bed, comfortable, NARD Neuro: awake, alert and oriented x4, speech clear, no focal neuro deficits noted HEENMT: normocephalic, atraumatic, EOMI, sclerae anicteric Respiratory: clear to auscultation bilaterally, nonlabored breathing Cardio: regular rate, regular rhythm with S1-S2 Abdomen: nondistended, normoactive bowel sounds, soft, nontender to palpation Skin: no rashes or lesions, warm and dry Psych: appropriate mood and affect, judgment and insight intact DS: Data Data Completed and Pending Pending studies at discharge: Pending at discharge 12/05/22 11:33 Surgical [PTH] Routine Labs on day of discharge: Labs from last 24 hours 12/05/22 05:52 WBC 6.4 RBC 4.22 L Hgb 8.2 L Hct 30.0 L MCV 71.1 L MCH 19.4 L
--- NOTE | 2022-12-06 09:57 | WPDANESPN ---
Anes - Prog Note Post-Op Date/Time: 12/06/22 09:57 Cardiovascular status: normal Respiratory status: normal Airway patency: baseline Mental status: baseline Post-Op hydration status: normal Vital Signs: Last Vital Signs Temp 98.0 F 12/05/22 14:00 Pulse 70 12/05/22 14:00 Resp 16 12/05/22 14:00 BP 139/71 12/05/22 14:00 Pulse Ox 100 12/05/22 14:00 O2 Del Method Room Air 12/05/22 12:01 Pain Score (VAS): 0/10 Laboratory Tests 12/05/22 05:52 12/05/22 05:52 Post-procedural complaints: none Patient Feedback: Patient satisfied with anesthetic care.
[2022-12-06 14:34] LABS: Albumin 3.9 g/dL (3.8-4.8); Alpha 1 Globulin 0.4 g/dL (0.2-0.3); Alpha 2 Globulin 0.8 g/dL (0.5-0.9); Beta 1 Globulin 0.5 g/dL (0.4-0.6); Gamma Globulin 0.8 g/dL (0.8-1.7); Protein, Total 6.6 g/dL (6.1-8.1)
[2022-12-07 10:57] LABS: Haptoglobin 207 mg/dL (43-212)
[2022-12-07 20:15] LABS: Soluble Transferrin Receptor 9.63 mg/L (0.76-1.76)
[2022-12-08 15:37] LABS: Creatinine, Random Urine 49 mg/dL (20-320)
== END 2022-12-05 14:45 | disposition home or self-care (01) | DRG 378 ==
LOC: ANHED 16:22 → ANH3MEDSUR 17:02
PROVIDERS: Internal Medicine Gastroenterology; Nurse Practitioner; Admitting Provider Internal Medicine; Emergency Provider Emergency Medicine; PCP Family Medicine; Visit Provider Physician Assistant
PROC: 0DJ08ZZ Inspection of Upper Intestinal Tract, Via Natural or Artificial Opening Endoscopic (ICD-10-PCS; CPT 43235; principal; 2022-12-05 13:15)
DX: K29.01 Acute gastritis with bleeding (principal); D62 Acute posthemorrhagic anemia; D50.9 Iron deficiency anemia, unspecified; I10 Essential (primary) hypertension; E78.5 Hyperlipidemia, unspecified; E66.9 Obesity, unspecified; F41.8 Other specified anxiety disorders; Z68.31 Body mass index [BMI] 31.0-31.9, adult; Z87.891 Personal history of nicotine dependence; Z79.82 Long term (current) use of aspirin
CPT/HCPCS: 36415; 36430; 71045; 80048; 80053; 81003; 82247; 82248; 82570; 82607; 82728; 82746; 83010; 83540; 83550; 83605; 83615; 83690; 84100; 84155; 84156; 84165; 84166; 84238; 84443; 84466; 84484; 85014; 85018; 85025; 85027; 85046; 85055; 85610; 85730; 86850; 86880; 86900; 86901; 86923; 87081; 88305; 93005; 96374; 99285; A9270; C9113; G0378; J1756; J2704; J7050; J7120; P9016

== ENCOUNTER 2023-03-05 01:42 | Day surgery (SDC) | payer MEDICARE, SELFPAY ==
[2023-02-15 16:04] VITALS: BMI 29.9
[2023-03-05 09:52] VITALS: BP 129/79; PULSE 69; RESP 18; TEMP 36.4; O2SAT 99
[2023-03-05] MEDS: LACTATED RINGERS 1,000 ML 150 ML IV CONT (10:01)
--- NOTE | 2023-03-05 10:19 | WPDANESEPPF ---
Anes - Initial Pre Proc Eval Procedure: Operation Date: 03/05/23 11:00 Proposed Procedures p Esophagogastroduodenoscopy - Rodger Fraser MD Date/Time: 03/05/23 10:19 Surgeon: Rodger Fraser MD Pre Op Diagnosis: Gastric ulcers Patient Data Age: 68 Gender: M Height: 1.83 m Weight: 106.6 kg Last Vital Signs Temp 97.6 F 03/05/23 09:52 Pulse 69 03/05/23 09:52 Resp 18 03/05/23 09:52 BP 129/79 03/05/23 09:52 Pulse Ox 99 03/05/23 09:52 O2 Del Method Room Air 03/05/23 09:52 Allergies Allergy/AdvReac Type Severity Reaction Status Date / Time No Known Allergies Allergy Unknown Verified 03/05/23 09:50 Home Medications Medication Instructions Recorded Confirmed Type lorazepam 1 mg tablet 1 mg PO BID PRN Anxiety 09/05/21 02/15/23 History simvastatin 40 mg tablet 40 mg PO DAILY 09/05/21 02/15/23 History paroxetine HCl 37.5 mg 37.5 mg PO QAM #30 tabs 09/19/22 02/15/23 Rx tablet,extended release 24 hr ferrous sulfate 325 mg (65 mg 325 mg PO DAILY #30 tabs 12/27/22 02/15/23 Rx iron) tablet pantoprazole 40 mg tablet,delayed 40 mg PO Q12H 30 days #60 tabs 12/27/22 02/15/23 Rx release Patient hx anesthesia problems: none Family hx anesthesia problems: none Results Review: All pre-operative results and documents have been reviewed as part of the pre-operative evaluation. [facility] Past Medical History Medical History (Updated 12/28/22 @ 15:07 by TOMER Bates) Anemia Anxiety with depression Essential (primary) hypertension (Unknown) Gastritis Headache Hyperlipidemia Major depressive disorder, recurrent, in partial remission Surgical History Surgical History (Updated 12/28/22 @ 15:03 by TOMER Bates) History of carpal tunnel release 2003 History of vasectomy 1994 Family History Family History (Updated 12/02/22 @ 23:08 by Rachael Baptiste NP) Other Hypertension Social History Social History (Updated 12/27/22 @ 16:00 by CODY Zamora Social History: 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 He has no children. He is . His is the durable power mathematical statistician for healthcare. He is a former smoker. Code status full Smoking packs per day: 1 Smoking cigarettes per day: 20.0 Years smoked: 10 Smoking pack-years: 10.00 Smoking status: Never smoker Alcohol intake: current Drinks per week: 35 Alcohol use details: beer Substance use: never Substance use type: does not use Lack of Transportation: No Lack of Food: Never True Current Housing: I Have Housing Concerned About Future Housing: No Difficulty Paying Gas/Electric Bills: No Difficulty Paying for Meds: No Currently Unemployed: YES Education: Master's Degree or Higher Difficulty w/ Childcare or Family Care: No Living arrangements: with family Occupation/Education: retired Gender identity (if verbalized by the patient): Male Sexual Orientation (if Verbalized by the Patient): Straight or Heterosexual Spiritual care concerns: No Anes - Eval Final PreProcedure Day of Procedure 03/05/23 10:19 Patient weight: obese Heart: regular rate and rhythm Lungs: clear to auscultation Airway: Mallampati scale class II Neurological: alert and oriented Last oral intake: >/= 8 hours ASA classification: II Emergent: no Anesthetic plan: proceed Anesthesia type and monitoring: general GIVS and standard monitoring Results Review: All pre-operative results and documents have been reviewed as part of the pre-operative evaluation. Informed Consent: The patient's anesthetic plan and its attendant risks and benefits were discussed with the patient/family/POA. Questions were solicited and answers provided to the satisfaction of the patient/family/POA.
--- NOTE | 2023-03-05 10:31 | PM.HPGS ---
History of Present Illness History of Present Illness Consent: Risks, benefits, and alternatives have been discussed and questions answered. Patient agrees to proceed with procedure. Chief complaint: Gastric ulcers Narrative: Alfie Weiss is a 68 year old male with symptomatic anemia, egd 11/2022 with ulcerative gastritis probably due to aspirin use, now doing better with improvement of anemia, on ppi. Review of Systems Constitutional: Constitutional: Denies headache(s) and Denies weakness Eyes: Eyes: Denies blurry vision ENT: Reports Normal hearing present, Denies headache(s) and Denies neck pain Cardiovascular: Cardiovascular: Denies chest pain and Denies dyspnea Respiratory: Respiratory: Denies dyspnea Gastrointestinal: Gastrointestinal: Reports no additional gastrointestinal complaints Genitourinary: Genitourinary: Denies dysuria Musculoskeletal: Musculoskeletal: Denies neck pain Integumentary/Breasts: Skin/Breast: Denies dry skin Neurologic: Reports Normal hearing present, Denies headache(s) and Denies weakness Psychiatric: Psychiatric: Denies anxiety Endocrine: Endocrine: Denies change in body appearance Hematologic/Lymphatic: Hematologic/Lymphatic: Denies easy bleeding Allergic/Immunologic: Allergic/Immunologic: Denies urticaria PMFSH Past Medical History Medical History (Updated 03/05/23 @ 10:33 by Rodger Fraser MD) Anemia Anxiety with depression Essential (primary) hypertension (Unknown) Gastric ulcer Gastritis Headache Hyperlipidemia Major depressive disorder, recurrent, in partial remission Surgical History Surgical History (Updated 12/28/22 @ 15:03 by TOMER Bates) History of carpal tunnel release 2003 History of vasectomy 1994 Family History Family History (Updated 12/02/22 @ 23:08 by Rachael Baptiste NP) Other Hypertension Social History Social History (Updated 12/27/22 @ 16:00 by Catalina Flores MA) Social History: 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 He has no children. He is . His is the durable power employment law attorney for healthcare. He is a former smoker. Code status full Smoking packs per day: 1 Smoking cigarettes per day: 20.0 Years smoked: 10 Smoking pack-years: 10.00 Smoking status: Never smoker Alcohol intake: current Drinks per week: 35 Alcohol use details: beer Substance use: never Substance use type: does not use Lack of Transportation: No Lack of Food: Never True Current Housing: I Have Housing Concerned About Future Housing: No Difficulty Paying Gas/Electric Bills: No Difficulty Paying for Meds: No Currently Unemployed: YES Education: Master's Degree or Higher Difficulty w/ Childcare or Family Care: No Living arrangements: with family Occupation/Education: retired Gender identity (if verbalized by the patient): Male Sexual Orientation (if Verbalized by the Patient): Straight or Heterosexual Spiritual care concerns: No Meds Home Medications and Allergies Home Medications Medication Instructions Recorded Confirmed Type lorazepam 1 mg tablet 1 mg PO BID PRN Anxiety 09/05/21 02/15/23 History simvastatin 40 mg tablet 40 mg PO DAILY 09/05/21 02/15/23 History paroxetine HCl 37.5 mg 37.5 mg PO QAM #30 tabs 09/19/22 02/15/23 Rx tablet,extended release 24 hr ferrous sulfate 325 mg (65 mg 325 mg PO DAILY #30 tabs 12/27/22 02/15/23 Rx iron) tablet pantoprazole 40 mg tablet,delayed 40 mg PO Q12H 30 days #60 tabs 12/27/22 02/15/23 Rx release Allergies Allergy/AdvReac Type Severity Reaction Status Date / Time No Known Allergies Allergy Unknown Verified 03/05/23 09:50 Vital Signs Vital Signs - 24 hr 03/05/23 09:52 Temperature 97.6 F Pulse Rate 69 Respiratory Rate 18 Blood Pressure 129/79 Pulse Oximetry 99 Oxygen Delivery Room Air Exam Const: General: comfortable and no acute distress HENMT: F
[2023-03-05 10:45] VITALS: BP 116/71; PULSE 66; RESP 18; O2SAT 95
[2023-03-05 10:55] VITALS: BP 126/79; PULSE 99; RESP 20; O2SAT 99
[2023-03-05 11:05] VITALS: BP 137/87; PULSE 60; RESP 15; O2SAT 95
== END 2023-03-05 11:15 | disposition home or self-care (01) ==
PROVIDERS: PCP Family Medicine; Visit Provider Internal Medicine Gastroenterology
PROC: 0DJ08ZZ Inspection of Upper Intestinal Tract, Via Natural or Artificial Opening Endoscopic (ICD-10-PCS; CPT 43235; principal; 2023-03-05 11:00)
DX: Z09 Encounter for follow-up examination after completed treatment for conditions other than malignant neoplasm (principal); K29.70 Gastritis, unspecified, without bleeding; D50.9 Iron deficiency anemia, unspecified; Z87.11 Personal history of peptic ulcer disease; I10 Essential (primary) hypertension; E78.5 Hyperlipidemia, unspecified; F33.41 Major depressive disorder, recurrent, in partial remission; F41.9 Anxiety disorder, unspecified; Z87.891 Personal history of nicotine dependence; E66.9 Obesity, unspecified; Z68.31 Body mass index [BMI] 31.0-31.9, adult
CPT/HCPCS: 43239; 88305; J2704; J7120